=== PATIENT | female | born 1960 | race Caucasian/White ===

== ENCOUNTER 2016-11-11 20:28 | Emergency (ER) | payer OTHER ==
[2016-11-11 20:36] VITALS: BP 139/87; PULSE 73; TEMP 97.9
[2016-11-11] MEDS ORDERED: ACETAMINOPHEN 325 MG TABLET (FP) PO ONE (20:37)
--- NOTE | 2016-11-11 20:37 | PDOC ---
Rapid Medical Evaluation Medical Evaluation: Allergies Allergy/AdvReac Type Severity Reaction Status Date / Time No Known Allergies Allergy Verified 11/11/16 20:35 11/11/16 20:30 brief evaluation in triage: cc: dizzyness, headache since yesterday , sore throat no PMHX vitals stable <Muriel Arzate - Last Filed: 11/11/16 20:35> Medical Evaluation: Allergies Allergy/AdvReac Type Severity Reaction Status Date / Time No Known Allergies Allergy Verified 11/11/16 20:35 Vital Signs Temp Pulse Resp BP Pulse Ox 97.9 F 73 18 139/87 95 11/11/16 20:35 11/11/16 20:35 11/11/16 20:35 11/11/16 20:35 11/11/16 20:35 <Carolina Mann - Last Filed: 11/12/16 00:56> Chief Complaint: Lightheaded Time Seen by Provider: 11/11/16 20:35
[2016-11-11] MEDS ORDERED: MECLIZINE HCL 25 MG TABLET (FP) PO ONE (22:13)
[2016-11-11] MEDS ORDERED: MECLIZINE HCL 25 MG TABLET (FP) ONE (22:37)
[2016-11-11 23:12] LABS: BASOPHIL 0.8 % (0-2.0); EOSINOPHIL 6.4 % (0-4.5); MCHC 33.3 g/dl (32.0-36.0); MEAN CELL VOLUME 90.2 fl (80-96); MEAN PLT VOLUME 8.4 fl (7.5-11.1); NEUTROPHILS 53.6 % (42.8-82.8); PLATELET COUNT 265 K/MM3 (134-434); RDW 13.6 % (11.6-15.6); WHITE BLOOD COUNT 9.4 K/mm3 (4.0-10.0)
[2016-11-11 23:22] LABS: URINE APPEARANCE CLEAR; URINE BILIRUBIN NEGATIVE (NEGATIVE); URINE COLOR LTYELLOW; URINE GLUCOSE (UA) NEGATIVE (NEGATIVE); URINE KETONE NEGATIVE (NEGATIVE); URINE LEUK ESTERASE NEGATIVE (NEGATIVE); URINE NITRITE NEGATIVE (NEGATIVE); URINE PROTEIN NEGATIVE (NEGATIVE); URINE UROBILINOGEN NEGATIVE E.U./dl (0.2-1.0)
[2016-11-11 23:24] LABS: URINE BLOOD 1+ (NEGATIVE)
[2016-11-11 23:29] LABS: URINE MUCUS FEW; URINE RBC 10 /hpf (0-3); URINE WBC 3 /hpf (3-5)
[2016-11-11 23:33] LABS: INR 1.2 (0.82-1.09); PROTHROMBIN TIME (PATIENT) 13.2 SEC (9.98-11.88)
[2016-11-11 23:35] LABS: ALBUMIN 3.9 g/dl (3.4-5.0); ANION GAP 8 (8-16); BILIRUBIN,TOTAL 0.4 mg/dL (0.2-1.0); CALCIUM 8.8 mg/dL (8.5-10.1); CO2 28 mmol/L (21-32); CREATININE 0.7 mg/dL (0.55-1.02); GLUCOSE,RANDOM 93 mg/dL (74-106); SGOT/AST 17 U/L (15-37); SGPT/ALT 23 U/L (12-78); TOT PROT 7.5 g/dl (6.4-8.2)
[2016-11-11 23:37] LABS: ALK PHOS 74 U/L (45-117); TROPONIN I < 0.02 ng/ml (0.00-0.05)
[2016-11-11] MEDS ORDERED: SODIUM CHLORIDE 1,000 ML IV STA (23:41)
--- NOTE | 2016-11-12 00:56 | PDOC ---
History of Present Illness - History of Present Illness Initial Comments: 11/12/16 00:56 Patient is a 56 year old female with significant medical hx of prediabetes who is presenting to the ED with dizziness for three days. Patient states that her symptoms started when she turned her head while lying in bed. Her dizziness is intermittent and characterized as the room spinning. She also endorses some mild headache, dry cough, nausea, and diaphoresis. Patient denies any visual changes, weakness, vomiting, fever, chills, chest pain, or shortness of breath. Denies any history of vertigo. PCP: Freddy Yoon MD ([facility]) Surgical Hx: cholecystectomy, tubal ligation Allergies: NKDA <Xiomara Lopez - Last Filed: 11/12/16 01:04> <Carolina Mann - Last Filed: 11/12/16 01:51> - General Chief Complaint: Lightheaded Stated Complaint: Lightheaded Time Seen by Provider: 11/11/16 20:35 Past History <Xiomara Lopez - Last Filed: 11/12/16 01:04> - Past Medical History Anemia: No Diabetes: Yes (pre) Suicide Attempt (Hx): No - Surgical History Cholecystectomy: Yes - Immunization History Immunization Up to Date: Yes - Psycho/Social/Smoking Cessation Hx Anxiety: No Suicidal Ideation: No Smoking Status: No Smoking History: Never smoked Number of Cigarettes Smoked Daily: 0 Hx Alcohol Use: No Drug/Substance Use Hx: No Substance Use Type: None <Carolina Mann - Last Filed: 11/12/16 01:51> - Past Medical History Allergies/Adverse Reactions: Allergies Allergy/AdvReac Type Severity Reaction Status Date / Time No Known Allergies Allergy Verified 11/11/16 20:35 Home Medications: Ambulatory Orders Meclizine HCl [Antivert -] 25 mg PO QID PRN #20 tablet 11/12/16 Meclizine HCl [Antivert -] 25 mg PO QID PRN #20 tablet 11/12/16 Review of Systems - Review of Systems Comments:: 11/12/16 00:58 CONSTITUTIONAL: Present: diaphoresis Absent: fever, chills, generalized weakness, malaise, loss of appetite HEENT: Absent: rhinorrhea, nasal congestion, throat pain, throat swelling, difficulty swallowing, mouth swelling, ear pain, eye pain, visual changes CARDIOVASCULAR: Absent: chest pain, syncope, palpitations, irregular heart rate, lightheadedness , peripheral edema RESPIRATORY: Present: dry cough Absent: shortness of breath, dyspnea with exertion, orthopnea, wheezing, stridor , hemoptysis GASTROINTESTINAL: Present: nausea Absent: abdominal pain, abdominal distension, vomiting, diarrhea, constipation, melena, hematochezia GENITOURINARY: Absent: dysuria, frequency, urgency, hesitancy, hematuria, flank pain, genital pain MUSCULOSKELETAL: Absent: myalgia, arthralgia, joint swelling SKIN: Absent: rash, itching, pallor HEMATOLOGIC/IMMUNOLOGIC: Absent: easy bleeding, easy bruising, lymphadenopathy, frequent infections ENDOCRINE: Absent: unexplained weight gain, unexplained weight loss, heat intolerance, cold intolerance NEUROLOGIC: Present: dizziness, headache Absent: focal weakness or paresthesia, unsteady gait, seizure, mental status changes, bladder or bowel incontinence. PSYCHIATRIC: Absent: anxiety, depression, suicidal or homicidal ideation, hallucinations <Xiomara Lopez - Last Filed: 11/12/16 01:04> *Physical Exam - Vital Signs Last Vital Signs Temp Pulse Resp BP Pulse Ox 97.9 F 73 18 139/87 95 11/11/16 20:35 11/11/16 20:35 11/11/16 20:35 11/11/16 20:35 11/11/16 20:35 - Physical Exam Comments: 11/12/16 01:00 GENERAL: Well developed, well nourished. Awake and alert. No acute distress. HEENT: Normocephalic, atraumatic. PERRLA, EOMI. No conjunctival pallor. Sclera are non- icteric. Moist mucous membranes. Oropharynx is clear. NECK: Supple. Full ROM. No JVD. Carotid pulses 2+ and symmetric, without bruits. No thyromegaly. No lymphadenopathy. CARDIOVASCULAR: Regular rate and rhythm. No murmurs, rubs, or gallops. Distal pulses are 2+ and symmetric. PULMONARY: No evidence of respiratory distress. Lungs clear to auscultation bilaterally. No wheezing, rales or rhonchi. ABDOMINAL: Soft. Non-tender. Non-distended. No rebound or guarding. No organomegaly. Normoactive bowel sounds. MUSCULOSKELETAL: Normal range of motion at all joints. No bony deformities or tenderness. No CVA tenderness. EXTREMITIES: No cyanosis. No clubbing. No edema. No calf tenderness. SKIN: Warm and dry. Normal capillary refill. No rashes. No jaundice. NEUROLOGICAL: Alert, awake, appropriate. 1-2 beats nystagmus. Cranial nerves 2-12 intact. Normal speech. Gait is normal without ataxia. PSYCHIATRIC: Cooperative. Good eye contact. Appropriate mood and affect. <JessicaSteviea - Last Filed: 11/12/16 01:04> - Vital Signs Last Vital Signs Temp Pulse Resp BP Pulse Ox 97.9 F 73 18 139/87 95 11/11/16 20:35 11/11/16 20:35 11/11/16 20:35 11/11/16 20:35 11/11/16 20:35 <Carolina Mann - Last Filed: 11/12/16 01:51> Heart Score/ECG Review #1 11/12/16 01:03 Sinus bradycardia at 59 bpm Otherwise normal ECG <JessicaXiomara - Last Filed: 11/12/16 01:04> ED Treatment Course - LABORATORY CBC & Chemistry Diagram: 11/11/16 22:45 11/11/16 22:45 - ADDITIONAL ORDERS Additional order review: Laboratory Results 11/11/16 11/11/16 11/11/16 23:11 22:45 22:45 INR Sodium 140 Potassium 4.0 Chloride 104 Carbon Dioxide 28 Anion Gap 8 BUN 27 H D Creatinine 0.7 Creat Clearance w eGFR > 60 Random Glucose 93 D Calcium 8.8 Total Bilirubin 0.4 D AST 17 ALT 23 Alkaline Phosphatase 74 Creatine Kinase 186 CK-MB (CK-2) 2.426 Troponin I < 0.02 Total Protein 7.5 Albumin 3.9 Urine Color Ltyellow Urine Appearance Clear Urine pH 5.0 Urine Protein Negative Urine Glucose (UA) Negative Urine Ketones Negative Urine Blood 1+ H Urine Nitrite Negative Urine Bilirubin Negative Urine Urobilinogen Negative Ur Leukocyte Esterase Negative Urine RBC 10 Urine WBC 3 Ur Epithelial Cells Rare Urine Mucus Few Blood Type O POSITIVE Antibody Screen Negative 11/11/16 22:45 INR 1.20 H Sodium Potassium Chloride Carbon Dioxide Anion Gap BUN Creatinine Creat Clearance w eGFR Random Glucose Calcium Total Bilirubin AST ALT Alkaline Phosphatase Creatine Kinase CK-MB (CK-2) Troponin I Total Protein Albumin Urine Color Urine Appearance Urine pH Urine Protein Urine Glucose (UA) Urine Ketones Urine Blood Urine Nitrite Urine Bilirubin Urine Urobilinogen Ur Leukocyte Esterase Urine RBC Urine WBC Ur Epithelial Cells Urine Mucus Blood Type Antibody Screen 11/11/16 22:45 RBC 4.09 MCV 90.2 MCHC 33.3 RDW 13.6 MPV 8.4 Neutrophils % 53.6 D Lymphocytes % 33.0 D Monocytes % 6.2 D Eosinophils % 6.4 H D Basophils % 0.8 - RADIOLOGY Radiograph Interpretation: 11/12/16 01:04 Potato Chip Frier: (jb) Report Date: 11/12/2016 00:17:00 Report Status: Preliminary Begin of Report Content Referring Physician: Carolina Mann Patient Name: Asha Raman THIS IS A 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 FINDINGS: There is no CT evidence of acute territorial infarction. There is no acute intracranial hemorrhage, mass effect or cerebral edema identified. The ventricles are unremarkable. Basilar cisterns are patent. No abnormal intra- axial or extra-axial fluid collection is seen. The bones of the calvarium and imaged skull base demonstrate no acute abnormality. The imaged paranasal sinuses and mastoid air cells are unremarkable. Imaged orbits are unremarkable. IMPRESSION: No CT evidence of acute infarct, hemorrhage, or mass effect. THIS DOCUMENT HAS BEEN ELECTRONICALLY SIGNED Connor Ray MD. 11/12/2016 00:48 JOSÉ Berg Please call Imaging Multimedia Specialist [phone] ([phone]) with questions. End of Report Content - Medications Given in the ED: ED Medications Discontinued Medications Generic Name Dose Route Start Last Admin Trade Name Freq PRN Reason Stop Dose Admin Acetaminophen 650 mg 11/11/16 20:37 11/11/16 20:44 Tylenol - PO 11/11/16 20:38 650 mg ONCE ONE Administration Meclizine HCl 25 mg 11/11/16 22:13 11/11/16 22:38 Antivert - PO 11/11/16 22:14 25 mg ONCE ONE Administration <Xiomara Lopez - Last Filed: 11/12/16 01:04> - LABORATORY CBC & Chemistry Diagram: 11/11/16 22:45 11/11/16 22:45 - ADDITIONAL ORDERS Additional order review: Laboratory Results 11/11/16 11/11/16 11/11/16 23:11 22:45 22:45 INR Sodium 140 Potassium 4.0 Chloride 104 Carbon Dioxide 28 Anion Gap 8 BUN 27 H D Creatinine 0.7 Creat Clearance w eGFR > 60 Random Glucose 93 D Calcium 8.8 Total Bilirubin 0.4 D AST 17 ALT 23 Alkaline Phosphatase 74 Creatine Kinase 186 CK-MB (CK-2) 2.426 Troponin I < 0.02 Total Protein 7.5 Albumin 3.9 Urine Color Ltyellow Urine Appearance Clear Urine pH 5.0 Urine Protein Negative Urine Glucose (UA) Negative Urine Ketones Negative Urine Blood 1+ H Urine Nitrite Negative Urine Bilirubin Negative Urine Urobilinogen Negative Ur Leukocyte Esterase Negative Urine RBC 10 Urine WBC 3 Ur Epithelial Cells Rare Urine Mucus Few Blood Type O POSITIVE Antibody Screen Negative 11/11/16 22:45 INR 1.20 H Sodium Potassium Chloride Carbon Dioxide Anion Gap BUN Creatinine Creat Clearance w eGFR Random Glucose Calcium Total Bilirubin AST ALT Alkaline Phosphatase Creatine Kinase CK-MB (CK-2) Troponin I Total Protein Albumin Urine Color Urine Appearance Urine pH Urine Protein Urine Glucose (UA) Urine Ketones Urine Blood Urine Nitrite Urine Bilirubin Urine Urobilinogen Ur Leukocyte Esterase Urine RBC Urine WBC Ur Epithelial Cells Urine Mucus Blood Type Antibody Screen 11/11/16 22:45 RBC 4.09 MCV 90.2 MCHC 33.3 RDW 13.6 MPV 8.4 Neutrophils % 53.6 D Lymphocytes % 33.0 D Monocytes % 6.2 D Eosinophils % 6.4 H D Basophils % 0.8 - RADIOLOGY Radiology Studies Ordered: Category Date Time Status HEAD CT WITHOUT CONTRAST [CT] Stat CT Scan 11/12/16 00:03 Taken - Medications Given in the ED: ED Medications Discontinued Medications Generic Name Dose Route Start Last Admin Trade Name Freq PRN Reason Stop Dose Admin Acetaminophen 650 mg 11/11/16 20:37 11/11/16 20:44 Tylenol - PO 11/11/16 20:38 650 mg ONCE ONE Administration Meclizine HCl 25 mg 11/11/16 22:13 11/11/16 22:38 Antivert - PO 11/11/16 22:14 25 mg ONCE ONE Administration <Carolina Mann - Last Filed: 11/12/16 01:51> *DC/Admit/Observation/Transfer - Attestations Scribe Attestion: 11/12/16 01:02 Documentation prepared by Xiomara Lopez, acting as medical anthropology director for Carolina Mann MD. <Xiomara Lopez - Last Filed: 11/12/16 01:04> <Carolina Mann - Last Filed: 11/12/16 01:51> Diagnosis at time of Disposition: Vertigo - Discharge Dispostion Disposition: HOME Condition at time of disposition: Stable - Prescriptions Prescriptions: Meclizine HCl [Antivert -] 25 mg PO QID PRN #20 tablet PRN Reason: Vertigo Meclizine HCl [Antivert -] 25 mg PO QID PRN #20 tablet PRN Reason: Vertigo - Referrals Referrals: Freddy Yoon [Primary Care Provider] - - Patient Instructions Printed Discharge Instructions: DI for Benign Paroxysmal Positional Vertigo Additional Instructions: PLEASE TIRE FIXER YOUR MEDICATION AT YOUR PHARMACY FOLLOW UP WITH YOUR REGULAR PHYSICIAN please return for any worsening symptoms
--- NOTE | 2016-11-12 11:03 | EKG ---
Test Reason : Blood Pressure : / mmHG Vent. Rate : 059 BPM Atrial Rate : 059 BPM P-R Int : 170 ms QRS Dur : 080 ms QT Int : 430 ms P-R-T Axes : 039 064 054 degrees QTc Int : 425 ms SINUS BRADYCARDIA OTHERWISE NORMAL ECG WHEN COMPARED WITH ECG OF 09-JAN-2015 22:00, VENT. RATE HAS DECREASED BY 36 BPM CLINICAL CORRELATION IS RECOMMENDED Confirmed by SHER FAUSTIN, LJ ([id number]) on 11/12/2016 11:03:12 AM Referred By: Confirmed By:LJ OLIVAREZ MD
== END 2016-11-12 01:58 | disposition home or self-care (01) ==
LOC: JER 20:28
PROC: 3E0337Z Introduction of Electrolytic and Water Balance Substance into Peripheral Vein, Percutaneous Approach (ICD-10-PCS; principal; 2016-11-11)
DX: R42 Dizziness and giddiness (principal)
CPT/HCPCS: 36415; 70450-TC; 80053; 81003; 81015; 82550; 82553; 84484; 85025; 85610; 86850; 86900; 86901; 93005; 93010; 96360; 99282-25

== ENCOUNTER 2017-02-15 09:41 | Emergency (ER) | payer OTHER ==
[2017-02-15 09:46] VITALS: BP 125/76; PULSE 110; TEMP 101.2; BMI 30.9
[2017-02-15] MEDS ORDERED: ACETAMINOPHEN 325 MG TABLET (FP) PO ONE (09:48)
--- NOTE | 2017-02-15 10:55 | PDOC ---
History of Present Illness - General Chief Complaint: Sore Throat Stated Complaint: FEVER, SORE THROAT Time Seen by Provider: 02/15/17 10:45 History Source: Patient Exam Limitations: No Limitations - History of Present Illness Initial Comments: 02/15/17 10:49 Patient came to emergency department for evaluation of chronic cough runny nose for a few months but acute onset of sore throat pain to yesterday. States felt fevers and chills, and is difficulty swallowing. Open with some relief Timing/Duration: 24 hours Severity: mild, moderate Associated Symptoms: reports: denies symptoms, fever/chills, headaches, loss of appetite, malaise Past History - Travel Traveled outside of the country in the last 30 days: No Close contact w/someone who was outside of country & ill: No - Past Medical History Allergies/Adverse Reactions: Allergies Allergy/AdvReac Type Severity Reaction Status Date / Time No Known Allergies Allergy Verified 02/15/17 09:47 Home Medications: Ambulatory Orders Azithromycin [Zithromax -] 250 mg PO UTDICT #6 tab 02/15/17 Anemia: No Diabetes: Yes (pre) Suicide Attempt (Hx): No - Surgical History Cholecystectomy: Yes - Immunization History Immunization Up to Date: Yes - Psycho/Social/Smoking Cessation Hx Anxiety: No Suicidal Ideation: No Smoking Status: No Smoking History: Never smoked Number of Cigarettes Smoked Daily: 0 Hx Alcohol Use: Yes (SOCIAL) Drug/Substance Use Hx: No Substance Use Type: None Review of Systems - Review of Systems Able to Perform ROS?: Yes Is the patient limited Nepali proficient: Yes Constitutional: Yes: Symptoms Reported, See HPI, Fever, Malaise HEENTM: Yes: Symptoms Reported, See HPI, Throat Swelling Respiratory: Yes: Symptoms reported, See HPI, Cough, Wheezing Musculoskeletal: Yes: Symptoms Reported All Other Systems: Reviewed and Negative *Physical Exam - Vital Signs Last Vital Signs Temp Pulse Resp BP Pulse Ox 101.2 F H 110 H 20 125/76 97 02/15/17 09:43 02/15/17 09:43 02/15/17 09:43 02/15/17 09:43 02/15/17 09:43 - Physical Exam General Appearance: Yes: Nourished, Appropriately Dressed, Apparent Distress, Mild Distress HEENT: positive: EOMI, MIC, Normal ENT Inspection, TMs Normal, Pharyngeal Erythema, Tonsillar Exudate (yellowish green exudate noted bilateral tonsils with beefy red appearance), Tonsillar Erythema, Nasal Congestion, Rhinorrhea. negative: Pharynx Normal Neck: positive: Tender, Supple, Lymphadenopathy (R), Lymphadenopathy (L) ( tender ) Respiratory/Chest: positive: Lungs Clear, Normal Breath Sounds. negative: Chest Tender, Wheezing Cardiovascular: positive: Regular Rate Musculoskeletal: positive: Normal Inspection Extremity: positive: Normal Capillary Refill, Normal Inspection Integumentary: positive: Pale Neurologic: positive: artillery or naval gunfire observer II-XII NML intact, Fully Oriented, Alert, Normal Mood/ Affect, Normal Response, Motor Strength 10/11 ED Treatment Course - Medications Given in the ED: ED Medications Discontinued Medications Generic Name Dose Route Start Last Admin Trade Name Catarino PRN Reason Stop Dose Admin Acetaminophen 650 mg 02/15/17 09:48 02/15/17 09:49 Tylenol - PO 02/15/17 09:49 650 mg NOW ONE Administration *DC/Admit/Observation/Transfer Diagnosis at time of Disposition: Pharyngitis Qualifiers: Pharyngitis/tonsillitis etiology: unspecified etiology Qualified Code(s): J02.9 - Acute pharyngitis, unspecified - Discharge Dispostion Disposition: HOME Condition at time of disposition: Stable Admit: No - Patient Instructions Printed Discharge Instructions: DI for Pharyngitis/Tonsillopharyngitis -- Adult Additional Instructions: Rest, drink lots of fluids: Teas, water, soups Eat cold things: Ice cream, ice pops, ice chips Saltwater gargles Steamy showers/seem to face break up mucus Avoid contact with others until fevers and pain resolved Lots of handwashing and good hygiene, this is contagious Azithromycin as directed Tylenol or Motrin for fever and pain Followup with private physician in one to 2 days as needed if not improving Return to emergency department for worsened symptoms, fevers, dehydration - Post Discharge Activity Work/School Note: Back to Work
== END 2017-02-15 10:58 | disposition home or self-care (01) ==
LOC: JER 09:41 → JERFT 09:41
DX: J02.9 Acute pharyngitis, unspecified (principal)
CPT/HCPCS: 99281-25

== ENCOUNTER 2017-06-26 17:20 | Emergency (ER) | payer OTHER ==
--- NOTE | 2017-06-26 17:45 | PDOC ---
Rapid Medical Evaluation Time Seen by Provider: 06/26/17 17:41 Medical Evaluation: Allergies Allergy/AdvReac Type Severity Reaction Status Date / Time No Known Allergies Allergy Verified 06/26/17 17:41 06/26/17 17:41 I have performed a brief in person evaluation of this patient. The patient presents with chief complaint of : cough, back pain for 4 days taking tamiflu (was not diagnosed with flu) and tessalon with no relief. no PMHX Pertinent PE findings: cough , I have ordered the following: chest xray The patient will proceed to the ER for further evaluation.
[2017-06-26] MEDS ORDERED: ALBUTEROL SO4 0.083% IH SOL 2.5 MG/3 ML VIAL.NEB. NEB ONE ×2 (17:46→19:41)
[2017-06-26] MEDS ORDERED: IBUPROFEN 600 MG TABLET (FP) PO ONE ×2 (17:46→19:41)
[2017-06-26 17:47] VITALS: BP 131/77; PULSE 105; TEMP 98.6; BMI 31.4
--- NOTE | 2017-06-26 20:14 | PDOC ---
History of Present Illness - General Chief Complaint: Respiratory Stated Complaint: COLD SYMPTOMS Time Seen by Provider: 06/26/17 17:41 History Source: Patient Exam Limitations: No Limitations - History of Present Illness Initial Comments: 06/26/17 18:38 57-year-old female presents the ED with complaints of fever, chills cough and wheezing for the past 2 days. Patient has no other complaints at this time. Patient denies recent travel, recent sick contacts or recent illness. Patient denies medical history. Timing/Duration: reports: other Severity: reports: moderate Possible Cause: Yes: no prior episodes Associated Symptoms: reports: cough, fever/chills, shortness of breath, wheezing Past History - Past Medical History Allergies/Adverse Reactions: Allergies Allergy/AdvReac Type Severity Reaction Status Date / Time No Known Allergies Allergy Verified 06/26/17 17:41 Home Medications: Ambulatory Orders Albuterol Sulfate Inhaler - [Ventolin HFA Inhaler -] 1 - 2 inh PO QID PRN #1 inhaler 06/26/17 Azithromycin [Zithromax Tri-Judd (3 DAYS) -] 500 mg PO DAILY #3 tablet 06/26/17 Prednisone [Deltasone -] 40 mg PO DAILY #8 tablet 06/26/17 Anemia: No COPD: No Diabetes: Yes (pre) - Surgical History Cholecystectomy: Yes - Immunization History Immunization Up to Date: Yes - Suicide/Smoking/Psychosocial Hx Smoking Status: No Smoking History: Never smoked Number of Cigarettes Smoked Daily: 0 Hx Alcohol Use: Yes (SOCIAL) Drug/Substance Use Hx: No Substance Use Type: None Patient Lives Alone: No Lives with/in: spouse/SO Respiratory Specific PMHX - Complaint Specific PMHX Bronchitis: No Review of Systems - Review of Systems Able to Perform ROS?: Yes Constitutional: Yes: Chills, Fever HEENTM: Yes: Nose Congestion Respiratory: Yes: Cough, Wheezing Cardiac (ROS): No: Symptoms Reported ABD/GI: No: Symptoms Reported : No: Symptoms Reported Musculoskeletal: No: Symptoms Reported Integumentary: No: Symptoms Reported Neurological: Yes: Headache *Physical Exam - Vital Signs Last Vital Signs Temp Pulse Resp BP Pulse Ox 98.6 F 105 H 19 131/77 96 06/26/17 17:41 06/26/17 17:41 06/26/17 17:41 06/26/17 17:41 06/26/17 17:41 - Physical Exam General Appearance: Yes: Nourished, Appropriately Dressed. No: Apparent Distress HEENT: positive: EOMI, IMC, TMs Normal, Pharynx Normal. negative: Pale Conjunctivae Neck: positive: Supple Respiratory/Chest: positive: Wheezing (expiratory bilateral with coarse breath sounds to left base). negative: Respiratory Distress, Accessory Muscle Use Cardiovascular: positive: Regular Rhythm, Tachycardia. negative: Murmur Gastrointestinal/Abdominal: positive: Soft. negative: Tenderness Extremity: positive: Normal Capillary Refill. negative: Pedal Edema Integumentary: positive: Normal Color, Warm, Moist Neurologic: positive: Motor Strength 5/5 (ambulatory) ED Treatment Course - RADIOLOGY Radiology Studies Ordered: Category Date Time Status CHEST PA & LAT [RAD] Stat Radiology 06/26/17 20:02 Ordered - Medications Given in the ED: ED Medications Discontinued Medications Generic Name Dose Route Start Last Admin Trade Name Freq PRN Reason Stop Dose Admin Albuterol Sulfate 1 amp 06/26/17 17:46 06/26/17 19:43 Ventolin 0.083% Nebulizer Soln - NEB 06/26/17 17:47 1 amp ONCE ONE Administration Ibuprofen 600 mg 06/26/17 17:46 06/26/17 19:43 Motrin - PO 06/26/17 17:47 600 mg ONCE ONE Administration Medical Decision Making - Medical Decision Making 06/26/17 20:00 Patient with complaints of URI symptoms. Patient on exam had expiratory wheezing bilaterally with coarse breath sounds concerning for bronchitis versus pneumonia. Patient given albuterol treatment prior to chest x-ray and a dose of Motrin. Patient will not be tested for influenza as she is out of the window for treatment of Tamiflu. 06/26/17 20:12 She states isn't better after receiving the nebulizer Chest x-ray shows bronchial thickening concerning for bronchitis. Patient be discharged home with prednisone, inhaler and azithromycin. 06/26/17 20:13 *DC/Admit/Observation/Transfer Diagnosis at time of Disposition: Acute wheezy bronchitis - Discharge Dispostion Disposition: HOME Condition at time of disposition: Improved - Prescriptions Prescriptions: Albuterol Sulfate Inhaler - [Ventolin HFA Inhaler -] 1 - 2 inh PO QID PRN #1 inhaler PRN Reason: Wheezing Azithromycin [Zithromax Tri-Judd (3 DAYS) -] 500 mg PO DAILY #3 tablet Prednisone [Deltasone -] 40 mg PO DAILY #8 tablet - Referrals Referrals: Freddy Yoon [Primary Care Provider] - - Patient Instructions Printed Discharge Instructions: DI for Acute Bronchitis Additional Instructions: Please use inhaler as needed for wheezing. Please start prednisone azithromycin today and take until completed. Drink plenty of fluids and follow-up with the family care physician as needed. otherwise return to ED if symptoms worsen. - Post Discharge Activity
== END 2017-06-26 20:17 | disposition home or self-care (01) ==
LOC: JERFT 17:20
PROC: 3E0F7GC Introduction of Other Therapeutic Substance into Respiratory Tract, Via Natural or Artificial Opening (ICD-10-PCS; principal; 2017-06-26)
DX: J20.9 Acute bronchitis, unspecified (principal); R73.03 Prediabetes
CPT/HCPCS: 71046-TC; 99281-25